=== PATIENT | female | born 1975 | race Hispanic/Latino ===

== ENCOUNTER → 2024-11-08 | Outpatient (CLI) | payer BC ==
--- NOTE | 2024-11-08 13:06 | HMCIMG ---
MR HIP LEFT WO HISTORY: Pain COMPARISON: None TECHNIQUE: MRI of the left. was performed utilizing multiple pulse sequences in axial, coronal and sagittal planes. Patient was not given contrast through intravenous route. FINDINGS: Abnormal increased signal intensity is seen at the insertion site of the gluteus muscle. The greater trochanter consistent with tenosynovitis with partial tear. Adjacent myositis changes also seen. No MR evidence of avascular necrosis, stress fracture or dislocation is seen. No evidence of fracture or dislocation is seen. IMPRESSION: 1. Abnormal increased signal intensity is seen at the insertion site of the gluteus muscle. The greater trochanter consistent with tenosynovitis with partial tear. Adjacent myositis changes also seen. There may also be adjacent trochanteric bursitis.
== END | disposition home or self-care (01) ==
LOC: RAH 11:01
PROVIDERS: ATTEND Orthopaedic Surgery
DX: S76.012A Strain of muscle, fascia and tendon of left hip, initial encounter (principal); M60.88 Other myositis, other site; X58.XXXA Exposure to other specified factors, initial encounter; Y93.89 Activity, other specified; Y92.89 Other specified places as the place of occurrence of the external cause; Y99.8 Other external cause status
CPT/HCPCS: 73721